=== PATIENT | male | born 1945 | race Caucasian/White ===

== ENCOUNTER → 2019-03-07 | Outpatient (CLI) | payer MEDICARE, SELFPAY ==
--- NOTE | 2019-03-07 | COLBX_PTH ---
PATIENT: BERTA ONEAL [facility]: [facility] U#:[id number] AGE/SX: 73/M ROOM: RE03/07/[address]: Dr. Hayden Manning MD : 1945 BED: DIS: 03/07/2019 SPEC #: [id number] RECD: 03/07/19 15:02 STATUS: LATISHA GINA #: [id number] TIFFANIE: 03/07/19 00:[address]: Hayden Manning DEPT: SURGICAL PATHOLOGY RECD BY: Mac Webb ENTERED: 03/08/19 08:07 SP TYPE: COLON BX OT DR: Dr. Robert Vargas DO Tissues: A - Transverse colon B - Sigmoid colon biopsy C - Rectum, NOS Procedures: Surgery Specimen Level IV HEADER OPERATION: Colonoscopy PRE-OP DIAGNOSIS: Screening Z12.11 TISSUE SUBMITTED: A - Proximal transverse colon polyp, B - Sigmoid colon polyps, C - Rectal polyp MICROSCOPIC DIAGNOSIS A. Proximal transverse colon polyp, biopsy: Tubular adenoma. B. Sigmoid colon polyps, biopsy: Fragments of tubular adenoma. C. Rectal polyp, biopsy: Hyperplastic polyp. KIAN:shmuel 03/09/19 MICROSCOPIC DESCRIPTION Slides are reviewed. GROSS DESCRIPTION A - Received in fixative is one container labeled with the patient's name and designated proximal transverse colon polyp. The specimen consists of one irregular fragment of light yee soft tissue that measures 0.5 x 0.5 x 0.2 cm. The specimen is totally submitted in one cassette. B - Received in fixative is one container labeled with the patient's name and designated sigmoid colon polyps. The specimen consists of multiple irregular fragments of light yee soft tissue that in aggregate measure 1.2 x 0.4 x 0.2 cm. The specimen is totally submitted in one cassette. C - Received in fixative is one container labeled with the patient's name and designated rectal polyp. The specimen consists of one irregular fragment of light yee soft tissue that measures 1 x 0.2 x 0.1 cm. Also present in the container is a minute fragment of yee soft tissue measuring 0.1 cm in greatest dimension. The specimen is totally submitted in one cassette. / KIAN:shmuel 03/08/19 TC:4 CPT: 82967 x3
== END | disposition home or self-care (01) ==
PROVIDERS: PCP Preventive Medicine Occupational Medicine; Referring Provider Surgery; Visit Provider Surgery
DX: Z12.11 Encounter for screening for malignant neoplasm of colon (principal); D12.5 Benign neoplasm of sigmoid colon; D12.3 Benign neoplasm of transverse colon; K62.1 Rectal polyp
CPT/HCPCS: 88305